=== PATIENT | male | born 1945 | race Caucasian/White ===

== ENCOUNTER 2023-12-29 08:40 | Inpatient (IN) | payer MEDICARE, OTHER ==
[~2023-12-29] VITALS: Ht 175.3 cm; Wt 124.5 kg
[~2023-12-29 08:40] MED LIST: ASPIR 8181 MG PO; DOXYCYCLINE HY100 MG PO; GLIPIZIDE5 MG PO; LEVOTHYROXINE50 MCG PO; LOSARTAN POTASS25 MG PO; OMEPRAZOLE40 MG PO; PENTOXIFYLLINE400 MG PO
[2023-12-29] MEDS ORDERED: ALOGLIPTIN25 MG (09:09)
[2023-12-29] MEDS ORDERED: VITAMIN D350 MCG (09:09)
[2023-12-29] MEDS ORDERED: ATORVASTATIN CA20 MG PO (09:09)
[2023-12-29] MEDS ORDERED: VITAMIN B121000 MCG (09:09)
[2023-12-29] MEDS ORDERED: ACTOS15 MG PO (09:09)
[2023-12-29] MEDS ORDERED: FISH OIL 1,0001 EAC3 (09:09)
[2023-12-29 09:13] VITALS: TEMP 97.6
[2023-12-29] MEDS ORDERED: IOPAMIDOL 370 MG/ML 100 ML INFUS..BTL INJ ONE (09:29)
[2023-12-29] MEDS: MECLIZINE HCL 12.5 MG TAB PO ONE (09:39)
[2023-12-29] MEDS: SODIUM CHLORIDE 0.9% 1000ML 1,000 ML IV ONE (10:57)
[2023-12-29] MEDS ORDERED: ONDANSETRON HCL INJ 2MG/ML 2ML 2 MG/ML VIAL IV PRN (14:15)
[2023-12-29] MEDS ORDERED: SODIUM CHLORIDE FLUSH 10 ML SYR INJ PRN (14:15)
[2023-12-29] MEDS: ASPIRIN 325 MG TAB PO ONE (14:27)
[2023-12-29 14:46] VITALS: PULSE 69; RESP 19
[2023-12-29 15:52] VITALS: BP 157/66; PULSE 67; RESP 18; TEMP 97.5; O2SAT 100
[2023-12-29 17:12] VITALS: BP 157/66; PULSE 67; RESP 18; TEMP 97.5; O2SAT 100
[2023-12-29 19:33] VITALS: BP 157/66; PULSE 67; RESP 18; TEMP 97.5; O2SAT 100
[2023-12-29 20:00] VITALS: BP 130/62; PULSE 67; RESP 18; TEMP 97.8; O2SAT 96
[2023-12-30] VITALS (9 sets, daily range): BP systolic 127–163; BP diastolic 56–74; PULSE 64–76; RESP 17–19; TEMP 97.4–98.4; O2SAT 94–99
[2023-12-30] MEDS ORDERED: SIMETHICONE 80 MG CHEW PO PRN (09:30)
[2023-12-30] MEDS ORDERED: ONDANSETRON HCL INJ 2MG/ML 2ML 2 MG/ML VIAL IV PRN (09:30)
[2023-12-30] MEDS ORDERED: DOCUSATE SODIUM 100 MG CAP PO PRN (09:30)
[2023-12-30] MEDS ORDERED: DEXTROSE 50% SYRINGE 50 ML IV PRN (09:30)
[2023-12-30] MEDS ORDERED: ACETAMINOPHEN 325 MG TAB PO PRN (09:30)
[2023-12-30] MEDS ORDERED: METOPROLOL TARTRATE INJ 1 MG/ML VIAL IV PRN (09:30)
[2023-12-30 10:17] LABS: BASOPHILS % 0.6 % (0.0-1.0); EOSINOPHILS # (AUTO) 0.2 (0.0-0.4); EOSINOPHILS % 2.4 % (0.0-6.0); HEMATOCRIT 47.7 % (38.2-49.6); HEMOGLOBIN 15.4 g/dL (14.0-18.0); LYMPHOCYTES # (AUTO) 0.9 (1.0-3.2); LYMPHOCYTES % 13.7 % (18.0-39.1); MEAN CORPUSCULAR HEMOGLOBIN 33.4 pg (28-32); MEAN CORPUSCULAR HGB CONC 32.3 g/dL (31-35); MEAN CORPUSCULAR VOLUME 103.5 fL (81-99); MONOCYTES # (AUTO) 0.7 (0.2-0.8); MONOCYTES % 10.7 % (4.4-11.3); NEUTROPHILS # (AUTO) 4.6 (2.1-6.9); NEUTROPHILS % 71.8 % (38.7-80.0); PLATELET COUNT 134 x10e3/uL (140-360); RED BLOOD COUNT 4.61 x10e6/uL (4.3-5.7); WHITE BLOOD COUNT 6.37 x10e3/uL (4.8-10.8)
[2023-12-30 10:33] LABS: ANION GAP 11.5 mmol/L (8-16); CALCIUM 8.8 mg/dL (8.4-10.2); CREATININE, SERUM 0.85 mg/dL (0.72-1.25); PHOSPHORUS 2.7 MG/DL (2.3-4.7); POTASSIUM 4.5 mmol/L (3.5-5.1)
[2023-12-30] MEDS: HYDRALAZINE HCL 25 MG TAB PO SCH (10:45)
[2023-12-30] MEDS: MECLIZINE HCL 12.5 MG TAB PO SCH (10:45)
[2023-12-30] MEDS: SODIUM CHLORIDE 0.45% 1,000 ML IV SCH (10:46)
[2023-12-30] MEDS: INSULIN REGULAR, HUMAN 100 UNIT/1 ML SQ SCH (11:30)
[2023-12-30] MEDS: LORAZEPAM INJ 2 MG/ML VIAL IV ONE (12:33)
[2023-12-30] MEDS: ENOXAPARIN SOD INJ 40 MG/0.4 ML SYR SC SCH (16:50)
[2023-12-30] MEDS: ATORVASTATIN 40 MG TAB PO SCH (21:14)
[2023-12-30] MEDS: MELATONIN 3 MG TAB PO PRN (22:43)
[2023-12-31] MEDS: LEVOTHYROXINE SODIUM 50 MCG TAB PO SCH (05:09)
[2023-12-31 08:39] VITALS: BP 76/43; PULSE 76; RESP 17; TEMP 97.7; O2SAT 97
[2023-12-31 08:41] VITALS: PULSE 81; RESP 18; O2SAT 96
[2023-12-31] MEDS: ALBUTEROL/IPRATROPIUM 3 ML NEB NEB PRN (08:41)
[2023-12-31 08:49] VITALS: BP 143/77; PULSE 76; RESP 17; TEMP 97.7; O2SAT 97
[2023-12-31] MEDS ORDERED: FUROSEMIDE INJ 10 MG/ML 2 ML VIAL IV ONE (11:45)
[2023-12-31] MEDS: FUROSEMIDE INJ 10 MG/ML 2 ML VIAL IV ONE (15:16)
[2023-12-31 20:00] VITALS: BP 158/71; PULSE 69; RESP 18; TEMP 97.8; O2SAT 98
[2023-12-31 21:00] VITALS: BP 158/71; PULSE 69; RESP 18; TEMP 97.8; O2SAT 98
[2023-12-31 21:45] VITALS: PULSE 68; RESP 18; O2SAT 96
[2024-01-01] VITALS: BP 148/79; PULSE 66; RESP 17; TEMP 98; O2SAT 97
[2024-01-01 04:00] VITALS: BP 152/57; PULSE 63; RESP 18; TEMP 97.6; O2SAT 97
[2024-01-01 07:34] VITALS: PULSE 72; RESP 18; O2SAT 97
[2024-01-01 08:11] VITALS: BP 154/70; PULSE 67; RESP 18; TEMP 97.6; O2SAT 97
[2024-01-01 08:17] VITALS: BP 154/70; PULSE 67; RESP 18; TEMP 97.6; O2SAT 97
[2024-01-01] MEDS ORDERED: AMLODIPINE BESYL5 MG PO (09:51)
[2024-01-01] MEDS ORDERED: MECLIZINE HCL12.5 MG PO (09:51)
[2024-01-01] MEDS ORDERED: HYDRALAZINE HCL25 MG PO (09:51)
[2024-01-01] MEDS ORDERED: ASPIRIN81 MG PO (09:51)
[2024-01-01 12:12] VITALS: BP 151/52; PULSE 73; RESP 18; TEMP 97.8; O2SAT 100
== END 2024-01-01 13:36 | disposition home or self-care (01) | DRG 149 ==
LOC: FSED 08:50 → ERHOLD 14:06 → MED/SURG3 15:35
PROVIDERS: ADMIT Internal Medicine; ATTEND Internal Medicine
DX: H81.10 Benign paroxysmal vertigo, unspecified ear (principal); E66.01 Morbid (severe) obesity due to excess calories; Z68.41 Body mass index [BMI] 40.0-44.9, adult; E11.9 Type 2 diabetes mellitus without complications; I10 Essential (primary) hypertension; E86.0 Dehydration; I65.23 Occlusion and stenosis of bilateral carotid arteries; K21.9 Gastro-esophageal reflux disease without esophagitis; E78.5 Hyperlipidemia, unspecified; M54.9 Dorsalgia, unspecified; H53.8 Other visual disturbances; R27.0 Ataxia, unspecified; Z11.52 Encounter for screening for COVID-19; Z79.890 Hormone replacement therapy; Z86.16 Personal history of COVID-19; Z88.0 Allergy status to penicillin; Z88.2 Allergy status to sulfonamides; Z88.8 Allergy status to other drugs, medicaments and biological substances; Z88.1 Allergy status to other antibiotic agents; Z88.5 Allergy status to narcotic agent
CPT/HCPCS: 0223U; 36415; 70450; 70496; 70498; 80048; 80061; 82948; 83036; 83735; 84100; 85025; 93005; 94640; 94799; 95819; 99252; 99284; J1650; J1940; J2060; J7030; Q9967